=== PATIENT | female | born 2000 | race Caucasian/White ===

== ENCOUNTER 2021-09-23 17:51 | Inpatient (IN) | payer MEDICAID ==
[~2021-09-23] VITALS: Ht 160 cm; Wt 104.0 kg
[2021-09-23] MEDS ORDERED: TERBUTALINE INJ 1 MG/ML (BRETHINE) AMP SC PRN (18:15)
[2021-09-23] MEDS ORDERED: AMPICILLIN FOR IV USE 2,000 MG in NS (IVPB) 50 ML IV SCH (18:15)
[2021-09-23 18:37] LABS: LYMPHOCYTES # (AUTO) 1.4 10^3/uL (1.0-4.0); LYMPHOCYTES % (AUTO) 11 % (12-44); MEAN PLATELET VOLUME 14.1 fL (9.0-12.2); NEUTROPHILS # (AUTO) 10.7 10^3/uL (1.8-7.8)
[2021-09-23 18:39] LABS: BASOPHILS # (AUTO) 0.1 10^3/uL (0.0-0.1); BASOPHILS % (AUTO) 1 % (0-10); EOSINOPHILS # (AUTO) 0.1 10^3/uL (0.0-0.3); EOSINOPHILS % (AUTO) 0 % (0-10); HEMATOCRIT 37 % (35-52); HEMOGLOBIN 12.5 g/dL (11.5-16.0); MEAN CORPUSCULAR HEMOGLOBIN 30 pg (25-34); MEAN CORPUSCULAR HGB CONC 34 g/dL (32-36); MEAN CORPUSCULAR VOLUME 88 fL (80-99); MONOCYTES # (AUTO) 0.8 10^3/uL (0.0-1.0); MONOCYTES % (AUTO) 6 % (0-12); NEUTROPHILS % (AUTO) 82 % (42-75); PLATELET COUNT 179 10^3/uL (130-400)
[2021-09-23] MEDS ORDERED: PREN-8 PO (18:43)
[2021-09-23] MEDS ORDERED: FAMO40TA6 PO (18:43)
[2021-09-23] MEDS: LACTATED RINGERS 1,000 ML IV SCH (18:50)
[2021-09-23 18:53] LABS: ALBUMIN 3.5 GM/DL (3.2-4.5); POTASSIUM 3.7 MMOL/L (3.6-5.0)
[2021-09-23 18:56] LABS: TOTAL PROTEIN 6.3 GM/DL (6.4-8.2)
[2021-09-23 18:58] LABS: BILIRUBIN,TOTAL 0.3 MG/DL (0.1-1.0)
[2021-09-23 19:00] LABS: CREATININE SERUM 0.63 MG/DL (0.60-1.30)
[2021-09-23 19:03] LABS: URIC ACID 5.9 MG/DL (2.6-7.2)
[2021-09-23 19:13] VITALS: BP 119/79
[2021-09-23 19:44] VITALS: BP 133/77
[2021-09-23 20:13] VITALS: BP 134/73
[2021-09-23 21:13] VITALS: BP 143/78
[2021-09-23 22:13] VITALS: BP 140/73
[2021-09-23 23:10] VITALS: BP 138/74
[2021-09-23] MEDS: AMPICILLIN FOR IV USE 1,000 MG in NS (IVPB) 50 ML IV SCH (23:17)
[2021-09-23] MEDS ORDERED: LACTATED RINGERS 1,000 ML IV ONE (23:39)
[2021-09-24] VITALS (48 sets, daily range): BP systolic 112–154; BP diastolic 56–98
[2021-09-24] MEDS: LACTATED RINGERS 1,000 ML IV SCH (00:33)
[2021-09-24] MEDS ORDERED: BUTORPHANOL INJ 2 MG/ML (STADOL) VIAL ONE ×2 (01:46→03:26)
[2021-09-24] MEDS: AMPICILLIN FOR IV USE 1,000 MG in NS (IVPB) 50 ML IV SCH ×3 (03:22→11:24)
[2021-09-24] MEDS ORDERED: LACTATED RINGERS 1,000 ML IV ONE ×2 (03:40→06:00)
[2021-09-24] MEDS ORDERED: fentaNYL 2 mcg/ml BUPIVA 0.125 100 ML ONE (04:05)
[2021-09-24] MEDS: CATHETER FLUSH 10 ML SYR IV SCH ×3 (04:12→14:09)
[2021-09-24] MEDS ORDERED: fentaNYL INJ 100 MCG/2 ML AMP ONE (05:31)
[2021-09-24] MEDS ORDERED: BUTORPHANOL INJ 2 MG/ML (STADOL) VIAL IV PRN ×2 (06:00)
[2021-09-24] MEDS ORDERED: fentaNYL 2 mcg/ml BUPIVA 0.125 100 ML IV SCH (06:00)
[2021-09-24] MEDS ORDERED: NALOXONE 0.4 MG/ML 1 ML (NARCAN) VIAL IV PRN (06:00)
[2021-09-24] MEDS ORDERED: fentaNYL INJ 100 MCG/2 ML AMP INJ ONE (06:00)
[2021-09-24] MEDS ORDERED: CATHETER FLUSH 10 ML SYR IV PRN (06:00)
[2021-09-24] MEDS ORDERED: fentaNYL 2 mcg/ml BUPIVA 0.125 100 ML EPI SCH (06:30)
[2021-09-24] MEDS ORDERED: OXYTOCIN PRE-MIX DRIP 500 ML IV PRN (08:45)
--- NOTE | 2021-09-24 08:54 | History & Physical-OB ---
OB - Chief Complaint & HPI Date/Time Date of Admission: Date of Admission: Sep 23, 2021 at 17:51 Date seen by a Provider: Sep 24, 2021 Time Seen by a Provider: 08:05 Chief Complaint/History OB-Reason for Admission/Chief: Induction of Labor (Pre eclampsia Mild) Hx : 1 Expected Date of Delivery: Sep 25, 2021 Gestational Age in Weeks: 39 Gestational Age in Days: 5 Indication for induction: other (Pre eclampsia with mild features) History of Labs O neg, Ab neg, Rub NON Imm HIV/RPR/HepB/C NR Normal 1 hr GTT GBS Pos Allergies and Home Medications Allergies Coded Allergies: No Known Drug Allergies (Unverified , 09/23/21) Patient Home Medication List Home Medication List Reviewed: Yes Famotidine (Famotidine) 40 Mg Tablet, 40 MG PO, (Reported) Entered as Reported by: ABDI CASANOVA on 09/23/211842 Last Action: New Order Vit W-Ca,Fe,FA(<1 mg) ( Formula) 1 Each Tablet, 1 EACH PO, (Reported) Entered as Reported by: ABDI CASANOVA on 09/23/211842 Last Action: New Order OB - History Hx of Present Care: Yes Ultrasounds: Normal mid trimester US Obstetrical Complications: Gestational Hypertension Medical Complications: None Obstetrical History Hx : 1 Patient Past Medical History Obesity Rh neg: Rhogam give 07/10/21 Social History/Family History Alcohol Use: Denies Use Smoking Cessation: Never smoker Immunizations Influenza Vaccine Up-to-Date: Yes; Up-to-Date Hepatitis A: Yes Hepatitis B: Yes Tetanus Booster (TDap): Less than 5yrs (07/10/21) Rubella: not immune RPR/VDRL: Negative GBS Status: Positive HBsAG: Negative OB - Admission Exam Physical Exam Vitals: Vital Signs 09/24/21 07:23 Temp 36.9 Pulse 92 Resp 15 B/P (MAP) 143/73 (96) Pulse Ox 99 O2 Delivery Room Air HEENT: NCAT Heart: Rhythm Normal Lungs: Clear Abdomen: Gravid Cervical Dilatation: 4cm Effacement: 100% Station: -2 Membranes: Intact Heart Rate: 130's Accelerations: Accelerations Present Decelerations: Variable Decelerations Short Term Variability: Present Teaching Supervisor Variability: Average (6-25) Contractions on Admission: < 5 Minutes Apart [place] Scoring Tool (Modified) Dilation (cm): 1-2cm (1) Effacement (%): 51-79% (2) Descent/Station: -2 (1) Cervix Consistency: Medium(1) Cervix Position: Middle/Mid-Position (1) Add 1 point for: Pre-eclampsia (1) [place] Score: 7 Labs Laboratory Tests Test 09/23/21 18:10 09/23/21 18:20 Range/Units Urine Protein 32 H 6-12 MG/DL Urine Creatinine 154 H 30-125 MG/DL Urine Protein/Creatinine Ratio 0.21 White Blood Count 13.0 H 4.3-11.0 10^3/uL Red Blood Count 4.16 3.80-5.11 10^6/uL Hemoglobin 12.5 11.5-16.0 g/dL Hematocrit 37 35-52 % Mean Corpuscular Volume 88 80-99 fL Mean Corpuscular Hemoglobin 30 25-34 pg Mean Corpuscular Hemoglobin Concent 34 32-36 g/dL Red Cell Distribution Width 12.9 10.0-14.5 % Platelet Count 179 130-400 10^3/uL Mean Platelet Volume 14.1 H 9.0-12.2 fL Immature Granulocyte % (Auto) 1 % Neutrophils (%) (Auto) 82 H 42-75 % Lymphocytes (%) (Auto) 11 L 12-44 % Monocytes (%) (Auto) 6 0-12 % Eosinophils (%) (Auto) 0 0-10 % Basophils (%) (Auto) 1 0-10 % Neutrophils # (Auto) 10.7 H 1.8-7.8 10^3/uL Lymphocytes # (Auto) 1.4 1.0-4.0 10^3/uL Monocytes # (Auto) 0.8 0.0-1.0 10^3/uL Eosinophils # (Auto) 0.1 0.0-0.3 10^3/uL Basophils # (Auto) 0.1 0.0-0.1 10^3/uL Immature Granulocyte # (Auto) 0.1 0.0-0.1 10^3/uL Percent Immature Platelet Fraction 18.1 H 0.0-7.6 % Sodium Level 138 135-145 MMOL/L Potassium Level 3.7 3.6-5.0 MMOL/L Chloride Level 107 98-107 MMOL/L Carbon Dioxide Level 17 L 21-32 MMOL/L Anion Gap 14 5-14 MMOL/L Blood Urea Nitrogen 11 7-18 MG/DL Creatinine 0.63 0.60-1.30 MG/DL Estimat Glomerular Filtration Rate 130 BUN/Creatinine Ratio 17 Glucose Level 91 70-105 MG/DL Uric Acid 5.9 2.6-7.2 MG/DL Calcium Level 9.0 8.5-10.1 MG/DL Corrected Calcium 9.4 8.5-10.1 MG/DL Total Bilirubin 0.3 0.1-1.0 MG/DL Aspartate Amino Transf (AST/SGOT) 14 5-34 U/L Alanine Aminotransferase (ALT/SGPT) 12 0-55 U/L Alkaline Phosphatase 108 40-136 U/L Total Protein 6.3 L 6.4-8.2 GM/DL Albumin 3.5 3.2-4.5 GM/DL OB - Assessment/Plan/Diagnosis Assessment Assessment: group B positive strep, induction of labor Admission Dx Third Trimester 39 week gestation Pre eclampsia with mild features Obesity in RH neg status Rubella Non Immune Admission Status: Inpatient Order (span 2 midnights) Reason for Inpatient Admission: Labor Plan Other Plan 21 yo G1 @ 39.6 wga here for IOL for pre eclampsia with mild features Plan - Cytotec started last night, CEFM - GBS Pos: continue on ampicillin - Continue to monitor blood pressures - AROM 819 - Augment with pitocin - Rh neg status - Rub Non Immune DONAL ESTEVEZ MD Sep 24, 2021 08:54
[2021-09-24] MEDS ORDERED: LACTATED RINGERS 1,000 ML IV SCH (10:15)
--- NOTE | 2021-09-24 12:48 | Labor Progress Note ---
Labor Progress Note Labor Progress Note Date Seen by Provider: Sep 24, 2021 Time Seen by Provider: 12:46 Subjective: Patient feeling more pressure and having some breakthru pain. Objective: /-1 Reactive CEFM, variable decelerations Assessment/Plan: Carol Monzon is a (21 /Para 1 / ,Gestational Age (wks)39.6 here for IOL for pre eclampsia with mild features CEFM/TOCO Continue pitocin/[] Anesthesia: [] Anticipate vaginal delivery. Vitals - Labs Vital Signs - I&O Vital Signs Date Time Temp Pulse Resp B/P (MAP) Pulse Ox O2 Delivery O2 Flow Rate FiO2 09/24/21 12:15 87 20 119/58 (78) 100 09/24/21 12:00 88 14 113/58 (76) 100 09/24/21 11:45 83 18 112/56 (74) 100 Room Air 09/24/21 11:30 36.3 110 18 140/73 (95) 100 09/24/21 11:15 90 16 140/67 (91) 99 09/24/21 11:00 90 16 139/72 (94) 100 09/24/21 10:45 86 15 134/63 (86) 99 09/24/21 10:30 36.6 82 18 139/65 (89) 100 Room Air 09/24/21 10:15 83 16 140/74 (96) 100 09/24/21 10:00 89 16 139/71 (93) 100 09/24/21 09:45 83 14 135/67 (89) 99 09/24/21 09:30 94 16 135/75 (95) 100 09/24/21 09:15 90 18 124/64 (84) 100 09/24/21 09:00 86 16 114/59 (77) 99 Room Air 09/24/21 08:45 96 16 137/77 (97) 98 Room Air 09/24/21 08:30 36.8 90 14 142/81 (101) 99 Room Air 09/24/21 08:15 100 16 140/78 (98) 100 Room Air 09/24/21 08:00 91 18 136/71 (92) 100 Room Air 09/24/21 07:45 112 18 146/81 (102) 100 Room Air 09/24/21 07:23 36.9 92 15 143/73 (96) 99 Room Air 09/24/21 06:13 82 16 133/68 (89) 100 Room Air 09/24/21 06:08 92 16 133/70 (91) 99 Room Air 09/24/21 06:03 76 16 130/60 (83) 99 Room Air 09/24/21 05:58 71 16 136/66 (89) 99 Room Air 09/24/21 05:53 90 16 132/60 (84) 99 Room Air 09/24/21 05:49 87 16 134/63 (86) 99 Room Air 09/24/21 05:42 83 16 135/76 (95) 99 Room Air 09/24/21 05:37 96 16 133/73 (93) 100 Room Air 09/24/21 05:34 93 18 139/67 (91) 99 Room Air 09/24/21 05:29 36.2 87 18 134/66 (88) 99 Room Air 09/24/21 05:22 85 18 141/72 (95) 99 Room Air 09/24/21 05:20 85 18 138/86 (103) 99 Room Air 09/24/21 05:17 78 18 138/82 (100) 99 Room Air 09/24/21 04:14 70 20 138/69 (92) 100 Room Air 09/24/21 03:14 71 20 151/80 (103) 97 Room Air 09/24/21 03:14 36.5 09/24/21 02:14 78 20 136/72 (93) 98 Room Air 09/24/21 01:13 83 18 143/91 (108) 99 Room Air 09/24/21 00:13 72 18 141/75 (97) 99 Room Air 09/23/21 23:10 68 16 138/74 (95) 99 Room Air 09/23/21 22:48 36.4 09/23/21 22:13 71 16 140/73 (95) 99 Room Air 09/23/21 21:13 81 16 143/78 (99) 100 Room Air 09/23/21 20:13 84 16 134/73 (93) 98 Room Air 09/23/21 19:44 78 18 133/77 (95) 99 Room Air 09/23/21 19:13 36.5 96 16 119/79 (92) 98 Room Air I & O 09/24/21 07:00 Intake Total 2150 ml Balance 2150 ml Labs Laboratory Tests 09/23/21 18:10: Urine Protein 32H, Urine Creatinine 154H, Urine Protein/Creatinine Ratio 0.21 09/23/21 18:20: White Blood Count 13.0H, Red Blood Count 4.16, Hemoglobin 12.5, Hematocrit 37, Mean Corpuscular Volume 88, Mean Corpuscular Hemoglobin 30, Mean Corpuscular He moglobin Concent 34, Red Cell Distribution Width 12.9, Platelet Count 179, Mean Platelet Volume 14.1H, Immature Granulocyte % (Auto) 1, Neutrophils (%) (Auto) 82H, Lymphocytes (%) (Auto) 11L, Monocytes (%) (Auto) 6, Eosinophils (%) (Auto) 0, Basophils (%) (Auto) 1, Neutrophils # (Auto) 10.7H, Lymphocytes # (Auto) 1.4, Monocytes # (Auto) 0.8, Eosinophils # (Auto) 0.1, Basophils # (Auto) 0.1, Immature Granulocyte # (Auto) 0.1, Percent Immature Platelet Fraction 18.1H, Sodium Level 138, Potassium Level 3.7, Chloride Level 107, Carbon Dioxide Level 17L, Anion Gap 14, Blood Urea Nitrogen 11, Creatinine 0.63, Estimat Glomerular Filtration Rate 130, BUN/Creatinine Ratio 17, Glucose Level 91, Uric Acid 5.9, Calcium Level 9.0, Corrected Calcium 9.4, Total Bilirubin 0.3, Aspartate Amino Transf (AST/SGOT) 14, Alanine Aminotransferase (ALT/SGPT) 12, Alkaline Phosphatase 108, Total Protein 6.3L, Albumin 3.5 DONAL ESTEVEZ MD Sep 24, 2021 12:48
[2021-09-24] MEDS ORDERED: LIDOCAINE/EPI 2% 1:200,00 (XYLOCAINE) 10 ML VIAL ONE ×2 (12:51→12:52)
[2021-09-24] MEDS: OXYTOCIN PRE-MIX DRIP 500 ML IV SCH ×2 (13:22→13:52)
--- NOTE | 2021-09-24 13:58 | OB Labor & Delivery Record ---
Vag Delivery Note Vag Delivery Note Date of Delivery: 09/24/21 Preoperative Diagnosis: Carol Monzon is a (21 /Para 1 / , Gestational Age (wks)39with [] Postoperative Diagnosis: Same Surgeon: DONAL ESTEVEZ Code Enforcement Officer: [] Anesthesia: [] Delivery Type: [] Findings: [] Viable [] , apgars [], weight [] Lacerations: Intact placenta with 3 vessel cord. No nuchal cord, body cord or shoulder dystocia Cytotec 800 mcg placed for hemorrhage prophylaxis Estimated Blood Loss: [] ml Complications: None Condition: Stable Description of Procedure: The patient is a 21 year old female who presented []. She was admitted and informed consent was obtained. Her labor course was remarkable for [] She progressed to complete dilatation and began to push. She was then set up for delivery. The 's head was delivered atraumatically in the [] position. The shoulders and remainder of the 's body were then delivered without difficulty. Upon delivery, the head was held below the level of the perineum and the mouth and nares were bulb suctioned. The cord was doubly clamped and cut and the was handed off to the pediatric staff. An intact placenta with 3-vessel cord delivered via Mc and there was found to be minimal bleeding.~ Vigorous fundal massage was performed and the fundus was found to be firm. IV oxytocin was given. Examination of the vagina and perineum revealed a [] laceration repaired in the usual fashion with 3-0 vicryl suture. Following the repair, sponge, instrument and needle counts were correct. Mom and baby were both in stable condition in the labor suite. Vitals - Labs Vital Signs - I&O Vital Signs Date Time Temp Pulse Resp B/P (MAP) Pulse Ox O2 Delivery O2 Flow Rate FiO2 09/24/21 12:15 87 20 119/58 (78) 100 09/24/21 12:00 88 14 113/58 (76) 100 09/24/21 11:45 83 18 112/56 (74) 100 Room Air 09/24/21 11:30 36.3 110 18 140/73 (95) 100 09/24/21 11:15 90 16 140/67 (91) 99 09/24/21 11:00 90 16 139/72 (94) 100 09/24/21 10:45 86 15 134/63 (86) 99 4/12/22 10:30 36.6 82 18 139/65 (89) 100 Room Air 09/24/21 10:15 83 16 140/74 (96) 100 09/24/21 10:00 89 16 139/71 (93) 100 09/24/21 09:45 83 14 135/67 (89) 99 09/24/21 09:30 94 16 135/75 (95) 100 09/24/21 09:15 90 18 124/64 (84) 100 09/24/21 09:00 86 16 114/59 (77) 99 Room Air 09/24/21 08:45 96 16 137/77 (97) 98 Room Air 09/24/21 08:30 36.8 90 14 142/81 (101) 99 Room Air 09/24/21 08:15 100 16 140/78 (98) 100 Room Air 09/24/21 08:00 91 18 136/71 (92) 100 Room Air 09/24/21 07:45 112 18 146/81 (102) 100 Room Air 09/24/21 07:23 36.9 92 15 143/73 (96) 99 Room Air 09/24/21 06:13 82 16 133/68 (89) 100 Room Air 09/24/21 06:08 92 16 133/70 (91) 99 Room Air 09/24/21 06:03 76 16 130/60 (83) 99 Room Air 09/24/21 05:58 71 16 136/66 (89) 99 Room Air 09/24/21 05:53 90 16 132/60 (84) 99 Room Air 09/24/21 05:49 87 16 134/63 (86) 99 Room Air 09/24/21 05:42 83 16 135/76 (95) 99 Room Air 09/24/21 05:37 96 16 133/73 (93) 100 Room Air 09/24/21 05:34 93 18 139/67 (91) 99 Room Air 09/24/21 05:29 36.2 87 18 134/66 (88) 99 Room Air 09/24/21 05:22 85 18 141/72 (95) 99 Room Air 09/24/21 05:20 85 18 138/86 (103) 99 Room Air 09/24/21 05:17 78 18 138/82 (100) 99 Room Air 09/24/21 04:14 70 20 138/69 (92) 100 Room Air 09/24/21 03:14 71 20 151/80 (103) 97 Room Air 09/24/21 03:14 36.5 09/24/21 02:14 78 20 136/72 (93) 98 Room Air 09/24/21 01:13 83 18 143/91 (108) 99 Room Air 09/24/21 00:13 72 18 141/75 (97) 99 Room Air 09/23/21 23:10 68 16 138/74 (95) 99 Room Air 09/23/21 22:48 36.4 09/23/21 22:13 71 16 140/73 (95) 99 Room Air 09/23/21 21:13 81 16 143/78 (99) 100 Room Air 09/23/21 20:13 84 16 134/73 (93) 98 Room Air 09/23/21 19:44 78 18 133/77 (95) 99 Room Air 09/23/21 19:13 36.5 96 16 119/79 (92) 98 Room Air I & O 09/24/21 07:00 Intake Total 2150 ml Balance 2150 ml Labs Laboratory Tests 09/23/21 18:10: Urine Protein 32H, Urine Creatinine 154H, Urine Protein/Creatinine Ratio 0.21 09/23/21 18:20: White Blood Count 13.0H, Red Blood Count 4.16, Hemoglobin 12.5, Hematocrit 37, Mean Corpuscular Volume 88, Mean Corpuscular Hemoglobin 30, Mean Corpuscular Hemoglobin Concent 34, Red Cell Distribution Width 12.9, Platelet Count 179, Mean Platelet Volume 14.1H, Immature Granulocyte % (Auto) 1, Neutrophils (%) (Auto) 82H, Lymphocytes (%) (Auto) 11L, Monocytes (%) (Auto) 6, Eosinophils (%) (Auto) 0, Basophils (%) (Auto) 1, Neutrophils # (Auto) 10.7H, Lymphocytes # (Auto) 1.4, Monocytes # (Auto) 0.8, Eosinophils # (Auto) 0.1, Basophils # (Auto) 0.1, Immature Granulocyte # (Auto) 0.1, Percent Immature Platelet Fraction 18.1H, Sodium Level 138, Potassium Level 3.7, Chloride Level 107, Carbon Dioxide Level 17L, Anion Gap 14, Blood Urea Nitrogen 11, Creatinine 0.63, Estimat Glomerular Filtration Rate 130, BUN/Creatinine Ratio 17, Glucose Level 91, Uric Acid 5.9, Calcium Level 9.0, Corrected Calcium 9.4, Total Bilirubin 0.3, Aspartate Amino Transf (AST/SGOT) 14, Alanine Aminotransferase (ALT/SGPT) 12, Alkaline Phosphatase 108, Total Protein 6.3L, Albumin 3.5 DONAL ESTEVEZ MD Sep 24, 2021 13:58
[2021-09-24] MEDS ORDERED: BENZOCAINE/MENTHOL (DERMOPLAST) 56 ML CAN TP PRN (14:00)
[2021-09-24] MEDS ORDERED: WITCH HAZEL(TUCKS) 40 EA JAR TOP PRN (14:00)
[2021-09-24] MEDS ORDERED: MEASLES,MUMPS,RUBELLA 1 EA INJ SQ ONE (14:00)
[2021-09-24] MEDS ORDERED: CATHETER FLUSH 10 ML SYR IV SCH (14:00)
[2021-09-24] MEDS: IBUPROFEN 600 MG (MOTRIN) TAB PO SCH ×2 (16:29→22:22)
[2021-09-24] MEDS: ACETAMINOPHEN 500 MG TAB (TYLENOL) PO SCH (17:56)
[2021-09-24] MEDS: DOCUSATE SODIUM 100 MG (COLACE) CAP PO SCH (22:22)
[2021-09-24] MEDS ORDERED: MEASLES,MUMPS,RUBELLA 1 EA INJ ONE (22:24)
[2021-09-25 00:18] VITALS: BP 123/73
[2021-09-25] MEDS: IBUPROFEN 600 MG (MOTRIN) TAB PO SCH ×3 (04:21→18:01)
[2021-09-25 04:23] VITALS: BP 144/77
[2021-09-25 05:37] LABS: HEMOGLOBIN 10.3 g/dL (11.5-16.0); MEAN CORPUSCULAR HEMOGLOBIN 30 pg (25-34)
[2021-09-25 05:38] LABS: BASOPHILS # (AUTO) 0.1 10^3/uL (0.0-0.1); BASOPHILS % (AUTO) 1 % (0-10); EOSINOPHILS # (AUTO) 0.1 10^3/uL (0.0-0.3); EOSINOPHILS % (AUTO) 0 % (0-10); HEMATOCRIT 30 % (35-52); LYMPHOCYTES % (AUTO) 17 % (12-44); MEAN CORPUSCULAR HGB CONC 34 g/dL (32-36); MEAN CORPUSCULAR VOLUME 89 fL (80-99); MEAN PLATELET VOLUME 13.8 fL (9.0-12.2); MONOCYTES % (AUTO) 9 % (0-12); NEUTROPHILS # (AUTO) 8.4 10^3/uL (1.8-7.8); NEUTROPHILS % (AUTO) 73 % (42-75); PLATELET COUNT 143 10^3/uL (130-400); WHITE BLOOD COUNT 11.5 10^3/uL (4.3-11.0)
--- NOTE | 2021-09-25 07:55 | Progress Note ---
Subjective Subjective/Events-last exam Afebrile, no acute events, no severe elevated blood pressure. Denies dizziness, chest pain, shortness of breath. States bleeding is improving. Objective Exam Last Set of Vital Signs Vital Signs Date Time Temp Pulse Resp B/P (MAP) Pulse Ox O2 Delivery O2 Flow Rate FiO2 09/25/21 04:23 36.8 90 17 144/77 (99) 98 Room Air Capillary Refill : I&O Intake and Output 09/25/21 00:00 Intake Total 4300 ml Output Total 675 ml Balance 3625 ml Intake Oral 400 ml IV Total 3900 ml Output Urine Total 675 ml # Voids 2 General: Alert, No Acute Distress Lungs: Clear to Auscultation, Normal Air Movement Heart: Regular Rate, No Murmurs Abdomen: Other (fundus firm at umbilicus) Extremities: No Edema Neuro: Normal Speech Psych/Mental Status: Mood NL Results/Procedures Lab Laboratory Tests 09/25/21 05:26: White Blood Count 11.5H, Red Blood Count 3.40L, Hemoglobin 10.3L, Hematocrit 30L , Mean Corpuscular Volume 89, Mean Corpuscular Hemoglobin 30, Mean Corpuscular Hemoglobin Concent 34, Red Cell Distribution Width 13.2, Platelet Count 143, Mean Platelet Volume 13.8H, Immature Granulocyte % (Auto) 0, Neutrophils (%) (Auto) 73, Lymphocytes (%) (Auto) 17, Monocytes (%) (Auto) 9, Eosinophils (%) (Auto) 0, Basophils (%) (Auto) 1, Neutrophils # (Auto) 8.4H, Lymphocytes # (Auto) 2.0, Monocytes # (Auto) 1.0, Eosinophils # (Auto) 0.1, Basophils # (Auto) 0.1, Immature Granulocyte # (Auto) 0.1, Percent Immature Platelet Fraction 13.8H Assessment/Plan Assessment/Plan (1) Spontaneous vaginal delivery Status: Acute (2) anemia Status: Acute Assessment & Plan: Acute blood loss anemia, ferrous sulfate. (3) Pre-eclampsia, mild, third trimester Assessment & Plan: No significantly elevated blood pressures , monitor closely. (4) Rh negative, delivered, current hospitalization Status: Acute Assessment & Plan: Infant rh pos, rhogam. CHESTER MALDONADO MD Sep 25, 2021 07:55
[2021-09-25 08:40] VITALS: BP 124/70
[2021-09-25] MEDS: DOCUSATE SODIUM 100 MG (COLACE) CAP PO SCH ×2 (08:53→21:30)
[2021-09-25] MEDS ORDERED: FERROUS SULF 325 MG (IRON) TAB PO ONE (10:25)
[2021-09-25] MEDS: FERROUS SULF 325 MG (IRON) TAB PO SCH (10:42)
[2021-09-25 12:06] VITALS: BP 129/72
[2021-09-25 15:53] VITALS: BP 138/86
[2021-09-25] MEDS: ACETAMINOPHEN 500 MG TAB (TYLENOL) PO SCH ×4 (20:26→21:30)
[2021-09-25 21:30] VITALS: BP 139/80
[2021-09-26] MEDS: IBUPROFEN 600 MG (MOTRIN) TAB PO SCH ×3 (01:07→13:44)
[2021-09-26 04:26] VITALS: BP 132/77
[2021-09-26] MEDS: ACETAMINOPHEN 500 MG TAB (TYLENOL) PO SCH ×3 (04:26→10:03)
[2021-09-26] MEDS ORDERED: IBUP-844 PO (07:25)
[2021-09-26] MEDS ORDERED: FERR325T24 PO (07:25)
[2021-09-26] MEDS: DOCUSATE SODIUM 100 MG (COLACE) CAP PO SCH (07:48)
[2021-09-26] MEDS: FERROUS SULF 325 MG (IRON) TAB PO SCH (07:48)
[2021-09-26 08:00] VITALS: BP 139/89
[2021-09-26 08:05] VITALS: BP 140/91
--- NOTE | 2021-09-26 09:55 | Anesthesia-Regional Post-Op ---
Regional Patient Condition Mental Status: Alert, Oriented x3 Circulation: Same as Pre-Op Headache: Absent Sensation: Full Recovery Motor Block: Absent Post Op Complications Complications None Follow Up Care/Instructions Patient Instructions None needed. Anesthesia/Patient Condition Patient is doing well, no complaints, stable vital signs, no apparent adverse anesthesia problems. No complications reported per nursing. PARISH CABRERA CRNA Sep 26, 2021 09:55
[2021-09-26 10:00] VITALS: BP 134/85
--- NOTE | 2021-09-26 11:08 | Discharge Summary ---
Discharge Summary Hospital Course Problems/Diagnosis: (1) Spontaneous vaginal delivery Status: Resolved Resolution Date/Time: 09/26/21 @ 19:30 (2) anemia Status: Acute Assessment & Plan: Acute blood loss anemia, asymptomatic, started ferrous sulfate. (3) Pre-eclampsia, mild, third trimester Status: Resolved Resolution Date/Time: 09/26/21 @ 19:37 Assessment & Plan: No significantly elevated blood pressures , follow up in a week for BP check, reminded of signs of preeclampsia to monitor for. (4) Rh negative, delivered, current hospitalization Status: Resolved Resolution Date/Time: 09/26/21 @ 19:37 Assessment & Plan: Infant rh pos, rhogam given. Hospital Course Date of Admission: Sep 23, 2021 at 17:51 Admission Diagnosis : Family Physician/Provider: Na Gonzalez MD Date of Discharge: 09/26/21 Discharge Diagnosis: See problem list Hospital Course: 21 yo G1 admitted for IOL due to preeclampsia without severe features, had unremarkable labor and delivery and course, did not require blood pressure treatment. See problem list for final assessments. Labs and Pending Lab Test: Home Meds Active Ibu (Ibuprofen) 600 Mg Tablet 600 Mg PO Q6H PRN Ferosul (Ferrous Sulfate) 325 Mg Tablet 325 Mg PO DAILY@0700 Reported Formula ( Vit W-Ca,Fe,FA(<1 mg)) 1 Each Tablet 1 Each PO Assessment/Pt DC Instructions Follow up at [facility] in a week for blood pressure check and in 6 weeks for visit. Discharge Diet: No Restrictions Activity as Tolerated: Yes (avoid strenuous activity x 6 weeks) Discharge Physical Examination Allergies: Coded Allergies: No Known Drug Allergies (Unverified , 09/23/21) General Appearance: No Apparent Distress, WD/WN Respiratory: Lungs Clear, Normal Breath Sounds Cardiovascular: Regular Rate, Rhythm, No Murmur Skin: Warm/Dry Neurologic/Psychiatric: Normal Mood/Affect CHESTER MALDONADO MD Sep 26, 2021 11:08
[2021-09-26 13:45] VITALS: BP 142/83
[2021-09-26 14:00] VITALS: BP 142/83
== END 2021-09-26 14:00 | disposition home or self-care (01) | DRG 806 ==
LOC: LDRP 17:51
PROVIDERS: ADMIT Family Medicine; ATTEND Family Medicine
PROC: 3E0DXGC Introduction of Other Therapeutic Substance into Mouth and Pharynx, External Approach (ICD-10-PCS; 2021-09-23)
PROC: 10E0XZZ Delivery of Products of Conception, External Approach (ICD-10-PCS; principal; 2021-09-24)
DX: O14.04 Mild to moderate pre-eclampsia, complicating childbirth (principal); D62 Acute posthemorrhagic anemia; Z37.0 Single live birth; Z3A.39 39 weeks gestation of pregnancy; O99.824 Streptococcus B carrier state complicating childbirth; O99.214 Obesity complicating childbirth; O90.81 Anemia of the puerperium; Z23 Encounter for immunization
CPT/HCPCS: 36415; 80053; 82570; 83033; 84156; 84550; 85025; 86780; 86850; 86900; 86901; 90707